=== PATIENT | female | born 1975 | race Hispanic/Latino ===

== ENCOUNTER 2019-06-29 16:50 | Inpatient (IN) | payer BC ==
[~2019-06-29] VITALS: Ht 160 cm; Wt 67.6 kg
[2019-06-29] MEDS ORDERED: SODIUM CHLORIDE 0.9% 1000ML 1,000 ML IV STA (17:12)
[2019-06-29 17:37] LABS: BASOPHILS # (AUTO) 0.1 (0.0-0.1); BASOPHILS % 0.3 % (0.0-1.0); EOSINOPHILS % 0.2 % (0.0-6.0); HEMATOCRIT 38.1 % (34.2-44.1); HEMOGLOBIN 12.3 g/dL (12.0-16.0); LYMPHOCYTES # (AUTO) 1.7 (1.0-3.2); LYMPHOCYTES % 8.8 % (18.0-39.1); MEAN CORPUSCULAR HEMOGLOBIN 29.6 pg (28-32); MEAN CORPUSCULAR HGB CONC 32.3 g/dL (31-35); MEAN CORPUSCULAR VOLUME 91.8 fL (81-99); MONOCYTES # (AUTO) 0.9 (0.2-0.8); MONOCYTES % 4.5 % (4.4-11.3); NEUTROPHILS # (AUTO) 16.2 (2.1-6.9); NEUTROPHILS % 85.8 % (38.7-80.0); PLATELET COUNT 357 x10e3/uL (140-360); RED BLOOD COUNT 4.15 x10e6/uL (3.6-5.1); RED CELL DISTRIBUTION WIDTH 12.3 % (11.7-14.4)
[2019-06-29 17:59] LABS: ALANINE AMINOTRANSFERASE 33 IU/L (0-55); ALBUMIN 4.4 g/dL (3.5-5.0); ALBUMIN/GLOBULIN RATIO 1.2 (0.8-2.0); ALKALINE PHOSPHATASE 49 IU/L (40-150); ANION GAP 13.7 mmol/L (8-16); BLOOD UREA NITROGEN 10 mg/dL (7-26); BUN/CREATININE RATIO 13 (6-25); CALCIUM 10.4 mg/dL (8.4-10.2); CARBON DIOXIDE 26 mmol/L (22-29); CHLORIDE 101 mmol/L (98-107); EST GLOMERULAR FILTRATION RATE > 60 ML/MIN (60-); GLUCOSE 141 mg/dL (74-118); POTASSIUM 3.7 mmol/L (3.5-5.1); SODIUM 137 mmol/L (136-145)
[2019-06-29] MEDS ORDERED: KETOROLAC TROMETHAMINE 30 MG/ML VIAL IV STA (18:11)
[2019-06-29] MEDS ORDERED: CEFTRIAXONE SOD 1 GM VIAL IV ONE (18:15)
[2019-06-29] MEDS ORDERED: SODIUM CHLORIDE 0.9% 1000ML 1,000 ML IV SCH ×2 (18:15→20:16)
[2019-06-29] MEDS ORDERED: PHENAZOPYRIDINE HCL 100 MG TAB PO ONE (18:15)
[2019-06-29] MEDS ORDERED: CEFTRIAXONE SOD 1 GM/NS 50 ML 50 ML IV ONE (18:15)
[2019-06-29 18:22] LABS: INR 0.96; PARTIAL THROMBOPLASTIN TIME 27.4 seconds (23.8-35.5); PROTHROMBIN TIME 13.3 seconds (11.9-14.5)
[2019-06-29 18:44] LABS: BILIRUBIN,URINE LARGE (NEGATIVE); CLARITY,URINE CLOUDY (CLEAR); COLOR,URINE RED (YELLOW); KETONES,URINE 1+ (NEGATIVE); LEUKOCYTE ESTERASE ,URINE LARGE (NEGATIVE); NITRITE,URINE NEGATIVE (NEGATIVE); PROTEIN,URINE DIPSTICK >=300 (NEGATIVE); URINE UROBILINOGEN 1 mg/dL (0.2 - 1)
[2019-06-29 18:45] LABS: BACTERIA,URINE MODERATE /HPF; RBC,URINE >50 /HPF (0-5)
--- NOTE | 2019-06-29 20:07 | Diagnostic Imaging Report ---
EXAM: CT Abdomen and Pelvis WITH contrast INDICATION: Hematuria. Pyelonephritis. COMPARISON: None. TECHNIQUE: Abdomen and pelvis were scanned utilizing a multidetector helical scanner from the lung base to the pubic symphysis after administration of IV contrast. Coronal and sagittal reformations were obtained. Routine protocol was performed. Scan was performed when during portal venous phase. IV CONTRAST: 100 mL of Isovue 370 ORAL CONTRAST: None COMPLICATIONS: None RADIATION DOSE: Total DLP: 318 mGy*cm Estimated effective dose: (DLP x 0.015 x size factor) mSv CTDIvol has been reviewed. It is below the limits set by the Radiation Protocol Committee (RPC). Dose modulation, iterative reconstruction, and/or weight based adjustment of the mA/kV was utilized to reduce the radiation dose to as low as reasonably achievable. FINDINGS: LINES and TUBES: None. LOWER THORAX: Unremarkable HEPATOBILIARY: No focal hepatic lesions. No biliary ductal dilation. GALLBLADDER: No radio-opaque stones or sludge. No wall thickening. SPLEEN: No splenomegaly. PANCREAS: No focal masses or ductal dilatation. ADRENALS: No adrenal nodules KIDNEYS/URETERS: Kidneys enhance symmetrically. No hydronephrosis. No cystic or solid mass lesions. No stones. GI TRACT: No abnormal distention, wall thickening, or evidence of bowel obstruction. Appendix is normal. Scattered diverticulosis without evidence of diverticulitis. PELVIC ORGANS/BLADDER: Slight urinary bladder wall thickening could be due to cystitis in the appropriate clinical context. LYMPH NODES: No lymphadenopathy. VESSELS: Unremarkable. PERITONEUM / RETROPERITONEUM: No free air or fluid. BONES: Unremarkable. SOFT TISSUES: Unremarkable. IMPRESSION: 1. Slight urinary bladder wall thickening could be due to cystitis in the appropriate clinical context. No urinary tract calcification. No hydronephrosis, hydroureter or perinephric fat stranding. 2. Scattered diverticulosis without evidence of diverticulitis. Signed by: Dr. Miguel Juarez M.D. on 06/29/2019 8:04 PM
[2019-06-29] MEDS ORDERED: ACETAMINOPHEN 325 MG TAB PO PRN (20:30)
[2019-06-29] MEDS ORDERED: MORPHINE SULFATE 2 MG/ML SYR 1ML IV PRN (20:30)
[2019-06-29] MEDS ORDERED: DEXTROSE 50% SYRINGE 50 ML IV PRN (20:30)
--- OUTSIDE RECORDS SUMMARY | 2019-06-29 20:37 | XMS REPORT ---
Author Author [facility] Address Unknown Phone Unavailable Care Team Providers Care Bobbin Coil Winder Name Role Phone MANUEL CASTORENA Unavailable Unavailable Problems This patient has no known problems. Allergies, Adverse Reactions, Alerts This patient has no known allergies or adverse reactions. Medications This patient has no known medications. Results Test Description Test Time Test Comments Text Results Atomic Results Result Comments CT ABDOMEN/PELVIS W 2019-06-29 20:00:[address] [address] Patient Name: MICHELE KHANNA MR #: [id number] : 1975 Age/Sex: 43/F Req #: [id number] Adm Physician: Ordered by: ALEXANDREA HUSTON DIRECT CHILL CASTER Report #: [id number] Location: ER Room/Bed: Procedure: [id number] CT/CT ABDOMEN/PELVIS W Exam Date: Exam Time: REPORT STATUS: Signed EXAM: CT Abdomen and Pelvis WITH contrast INDICATION: Hematuria. Pyelonephritis. COMPARISON: None. TECHNIQUE: Abdomen and pelvis were scanned utilizing a multidetector helical scanner from the lung base to the pubic symphysis after administration of IV contrast. Coronal and sagittal reformations were obtained. Routine protocol was performed. Scan was performed when during portal venous phase. IV CONTRAST: 100 mL of Isovue 370 ORAL CONTRAST: None COMPLICATIONS: None RADIATION DOSE: Total DLP: 318 mGy*cm Estimated effective dose: (DLP x 0.015 x size factor) mSv CTDIvol has been reviewed. It is below the limits set by the Radiation Protocol Committee (RPC). Dose modulation, iterative reconstruction, and/or weight based adjustment of the mA/kV was utilized to reduce the radiation dose to as low as reasonably achievable. FINDINGS: LINES and TUBES: None. LOWER THORAX: Unremarkable HEPATOBILIARY: No focal hepatic lesions. No biliary ductal dilation. GALLBLADDER: No radio-opaque stones or sludge. No wall thickening. SPLEEN: No splenomegaly. PANCREAS: No focal masses or ductal dilatation. ADRENALS: No adrenal nodules KIDNEYS/URETERS: Kidneys enhance symmetrically. No hydronephrosis. No cystic or solid mass lesions. No stones. GI TRACT: No abnormal distention, wall thickening, or evidence of bowel obstruction. Appendix is normal. Scattered diverticulosis without evidence of diverticulitis. PELVIC ORGANS/BLADDER: Slight urinary bladder wall thickening could be due to cystitis in the appropriate clinical context. LYMPH NODES: No lymphadenopathy. VESSELS: Unremarkable. PERITONEUM / RETROPERITONEUM: No free air or fluid. BONES: Unremarkable. SOFT TISSUES: Unremarkable. IMPRESSION: 1. Slight urinary bladder wall thickening could be due to cystitis in the appropriate clinical context. No urinary tract calcification. No hydronephrosis, hydroureter or perinephric fat stranding. 2. Scattered diverticulosis without evidence of diverticulitis. Signed by: Dr. Miguel Juarez M.D. on 06/29/2019 8:04 PM Dictated By: MIGUEL JUAREZ MD, MD 03 Transcribed By: TOMY on 06/29/192003 COPY TO: ALEXANDREA HUSTON DIRECT CHILL CASTER SCR MAMM BILATERAL ARCELIA CAD DIGITAL 2018-12-15 10:43:08 - SCR MAMM BILATERAL ARCELIA CAD DIGITALBILATERAL DIGITAL SCREENING MAMMOGRAM 3D/2D WITH CAD: 12/15/2018CLINICAL: Asymptomatic. Digital breast tomosynthesis was performed in addition to routine CC and MLO views. Current mammographic images were evaluated by either a [employer] M-Vu or a [employer] ImageChecker CAD (computer aided detection system). Comparison is made to exams dated 12/13/2017 mammogram, 10/25 mammogram - [facility], and 12/04/2015 mammogram - [facility]. There are scattered fibroglandular tissues in both breasts. No suspicious mass, architectural distortion, malignant type calcification, or lymph node abnormality detected. Breast architecture is stable compared to prior exams.IMPRESSION: NEGATIVEThere is no mammographic evidence of malignancy. Resume annual screening mammography in one year. Michael bailey/penrad:12/15/2018 10:43:08 Network Architect: Nimo CAMPBELL, [facility] sent: BIRADS 1-2 Normal Mammogram BI-RADS: 1 Negative
[2019-06-29] MEDS: INSULIN REGULAR, HUMAN 100 UNIT/1 ML 3ML VIAL SQ SCH (21:00)
[2019-06-29] MEDS ORDERED: CEFEPIME 2 GM/NS 0.9% 100 ML 100 ML IV SCH (21:00)
--- NOTE | 2019-06-29 21:19 | NUR ---
Received report from ER nurse.
[2019-06-29 22:00] VITALS: BP 124/72
--- NOTE | 2019-06-29 22:00 | NUR ---
Patient arrived to the floor via w/c.
[2019-06-29 22:39] VITALS: BP 127/81
[2019-06-29] MEDS: MORPHINE SULFATE INJ 4 MG/ML INJ 1ML IV PRN (23:15)
[2019-06-29] MEDS: ONDANSETRON HCL INJ 2MG/ML 2ML 2 MG/ML VIAL IV PRN (23:26)
[2019-06-30] VITALS (8 sets, daily range): BP systolic 118–154; BP diastolic 72–95
--- NOTE | 2019-06-30 | NUR ---
Patient requested pain and nausea meds. Given as ordered by MD. Admit completed.
[2019-06-30] MEDS ORDERED: METFORMIN HCL500 MG PO ×2 (03:37→03:39)
[2019-06-30] MEDS ORDERED: LOTENSIN HCT 21 EAC2 PO (03:42)
[2019-06-30] MEDS ORDERED: ATORVASTATIN CA20 MG PO (03:51)
[2019-06-30 05:55] LABS: BASOPHILS % 0.3 % (0.0-1.0); EOSINOPHILS # (AUTO) 0.1 (0.0-0.4); EOSINOPHILS % 1.1 % (0.0-6.0); HEMATOCRIT 31.8 % (34.2-44.1); HEMOGLOBIN 10.1 g/dL (12.0-16.0); LYMPHOCYTES % 19.7 % (18.0-39.1); MEAN CORPUSCULAR HEMOGLOBIN 29.5 pg (28-32); MEAN CORPUSCULAR HGB CONC 31.8 g/dL (31-35); MONOCYTES # (AUTO) 0.7 (0.2-0.8); MONOCYTES % 6.8 % (4.4-11.3); NEUTROPHILS # (AUTO) 7.3 (2.1-6.9); NEUTROPHILS % 71.7 % (38.7-80.0); PLATELET COUNT 283 x10e3/uL (140-360); RED BLOOD COUNT 3.42 x10e6/uL (3.6-5.1); RED CELL DISTRIBUTION WIDTH 12.6 % (11.7-14.4)
[2019-06-30 06:28] LABS: ALANINE AMINOTRANSFERASE 23 IU/L (0-55); ALBUMIN 3.2 g/dL (3.5-5.0); ALBUMIN/GLOBULIN RATIO 1.1 (0.8-2.0); ALKALINE PHOSPHATASE 36 IU/L (40-150); ANION GAP 7.5 mmol/L (8-16); CALCIUM 8.4 mg/dL (8.4-10.2); CARBON DIOXIDE 28 mmol/L (22-29); CHLORIDE 106 mmol/L (98-107); CREATININE, SERUM 0.74 mg/dL (0.57-1.11); EST GLOMERULAR FILTRATION RATE > 60 ML/MIN (60-); GLUCOSE 154 mg/dL (74-118); POTASSIUM 3.5 mmol/L (3.5-5.1); SODIUM 138 mmol/L (136-145)
[2019-06-30 06:41] LABS: BLOOD UREA NITROGEN 12 mg/dL (7-26); BUN/CREATININE RATIO 16 (6-25)
--- NOTE | 2019-06-30 06:41 | NUR ---
Patient resting quitly at this time.
[2019-06-30] MEDS ORDERED: SODIUM CHLORIDE 0.9% 50ML 50 ML ONE (07:01)
[2019-06-30] MEDS ORDERED: IOPAMIDOL 370 MG/ML 200 ML INFUS..BTL INJ ONE (07:01)
[2019-06-30] MEDS: INSULIN REGULAR, HUMAN 100 UNIT/1 ML 3ML VIAL SQ SCH ×4 (07:30→21:00)
--- NOTE | 2019-06-30 07:45 | NUR ---
PATIENT IN BED RESTING WITH NO S/S OF DISTRESS. IV FLUID INFUSING ORDERED. BED IN LOWER POSITION, CALL LIGHT AT REACH.
[2019-06-30] MEDS: CEFEPIME 2 GM/NS 0.9% 100 ML 100 ML IV SCH ×2 (10:00→21:36)
[2019-06-30] MEDS ORDERED: AMLODIPINE BESYLATE 5 MG TAB PO PRN (11:15)
--- NOTE | 2019-06-30 11:22 | NUR ---
MD IN TO SEE PATIENT, NEW ORDER RECEIVED.
[2019-06-30] MEDS: KCL 20MEQ/.9 SOD CHL 1,000 ML IV SCH (11:57)
--- NOTE | 2019-06-30 12:06 | History and Physical ---
PRIMARY CARE PHYSICIAN: Dr. Bushra Aguilera CHIEF COMPLAINT: Gross hematuria associated with flank and abdominopelvic pain with urinary tract infection. HISTORY: The patient is a 43-year-old female with baseline diabetes on oral hypoglycemic medication and also hypertension. She is also on metformin, benazepril, HCTZ, came to the hospital after she did not feel better from treatment at an urgent care. The patient presented with gross hematuria associated with pelvic and flank pain. She also has leukocytosis and lactic acidosis. Her heart rate was 125, blood pressure was very elevated. She has symptoms of sepsis without shock. The patient is admitted to the hospital for IV antibiotic treatment. She did receive a dose of cefepime in the emergency room. PAST MEDICAL HISTORY: 1. Diabetes type 2, on oral hypoglycemic medication. 2. Hypertension. PAST SURGICAL HISTORY: Noncontributory. SOCIAL HISTORY: The patient does not smoke or use alcohol. No regular drugs. ALLERGIES: NO KNOWN ALLERGIES. HOME MEDICATIONS: The patient is on Lipitor, benazepril, HCTZ, metformin. PHYSICAL EXAMINATION: VITAL SIGNS: Temperature is 98, blood pressure 194/94, pulse rate 125, respirations 20. GENERAL: The patient is not in acute distress. She is awake. HEENT: Normocephalic and atraumatic. Sclerae anicteric. NECK: Supple grossly. PULMONARY: Clear. CARDIOVASCULAR: Tachycardia. ABDOMEN: Tenderness in suprapubic area along with right flank tenderness. EXTREMITIES: No cyanosis or edema NEUROLOGIC: No focal deficit. LABORATORY DATA: Sodium is 137, potassium 3.7, chloride is 101, bicarb 26, BUN 10, creatinine 0.8, glucose 141, lactic acid level is 2.1, calcium is 10.4, globulin 3.7. WBC 18.8, hemoglobin 12.3, hematocrit 38, platelet 357. Coagulation is normal. She has a left shift of 85.8 neutrophils. Urinalysis, red cloudy urine, 1+ ketone, large leukocyte esterase, greater than 50 rbc, wbc's 20, moderate bacteria. test, urine negative, epithelial cells none. CT scan of abdomen and pelvis shows cystitis but no abscess or hydronephrosis. IMPRESSION: 1. Sepsis without shock. 2. Urinary tract infection causing the above. 3. Lactic acidosis, combination of urinary tract infection, sepsis, and was on metformin. 4. Baseline diabetes type 2, on metformin and hypertension. 5. Gross hematuria secondary to the above. PLAN: Continue with IV fluids. Cefepime. Check blood culture, urine culture. Home medication resumed except for metformin and HCTZ. Check blood pressure medication if needed. Continue with rehydration. Continue with cefepime q.12. We will check the patient's blood culture, urine culture and sensitivity prior to discharge home. MD JOSEPH Garcia/JULIETTE /[id number]
--- NOTE | 2019-06-30 15:12 | NUR ---
LIVES INDEPENDENTLY AT HOME WITH FAMILY EMERGENCY CONTACT: SISTER JANEE [phone] PCP: DR. KOURTNEY CASSIDY EMPLOYMENT STATUS: EMPLOYED HOME HEALTH: NONE DME: NONE DC PLAN: RETURN HOME AND TO WORK
--- NOTE | 2019-06-30 15:35 | NUR ---
PATIENT AMBULATED TO THE RESTROOM AND BACK TO BED. IV FLUID INFUSING ORDERED.
[2019-06-30] MEDS: ATORVASTATIN 20 MG TAB PO SCH (21:36)
[2019-06-30] MEDS ORDERED: EXCEDRIN MIGRA1 EACH PO (21:51)
[2019-06-30] MEDS ORDERED: CAFFEINE PO PRN (22:00)
[2019-06-30] MEDS ORDERED: ASPIRIN PO PRN (22:00)
[2019-06-30] MEDS ORDERED: ACETAMINOPHEN PO PRN (22:00)
[2019-06-30] MEDS ORDERED: [UNRECOGNIZED DRUG - OTHER] PO PRN (22:00)
[2019-06-30] MEDS: ACETAMIN/BUTALBITAL/CAFFEINE TAB PO PRN (22:08)
[2019-07-01] VITALS (8 sets, daily range): BP systolic 126–142; BP diastolic 67–88
[2019-07-01] MEDS: KCL 20MEQ/.9 SOD CHL 1,000 ML IV SCH ×3 (01:18→17:15)
[2019-07-01 06:15] LABS: BASOPHILS % 0.4 % (0.0-1.0); EOSINOPHILS # (AUTO) 0.2 (0.0-0.4); EOSINOPHILS % 2.3 % (0.0-6.0); HEMATOCRIT 30.8 % (34.2-44.1); HEMOGLOBIN 9.7 g/dL (12.0-16.0); LYMPHOCYTES # (AUTO) 1.9 (1.0-3.2); LYMPHOCYTES % 27.9 % (18.0-39.1); MEAN CORPUSCULAR HEMOGLOBIN 29.3 pg (28-32); MEAN CORPUSCULAR HGB CONC 31.5 g/dL (31-35); MEAN CORPUSCULAR VOLUME 93.1 fL (81-99); MONOCYTES # (AUTO) 0.6 (0.2-0.8); MONOCYTES % 7.9 % (4.4-11.3); NEUTROPHILS # (AUTO) 4.2 (2.1-6.9); NEUTROPHILS % 61.1 % (38.7-80.0); PLATELET COUNT 276 x10e3/uL (140-360); RED BLOOD COUNT 3.31 x10e6/uL (3.6-5.1); RED CELL DISTRIBUTION WIDTH 12.6 % (11.7-14.4)
[2019-07-01 06:39] LABS: ANION GAP 10.3 mmol/L (8-16); BLOOD UREA NITROGEN 8 mg/dL (7-26); BUN/CREATININE RATIO 12 (6-25); CARBON DIOXIDE 27 mmol/L (22-29); CHLORIDE 107 mmol/L (98-107); CREATININE, SERUM 0.67 mg/dL (0.57-1.11); EST GLOMERULAR FILTRATION RATE > 60 ML/MIN (60-); GLUCOSE 152 mg/dL (74-118); POTASSIUM 4.3 mmol/L (3.5-5.1); SODIUM 140 mmol/L (136-145)
--- NOTE | 2019-07-01 07:00 | NUR ---
Received bedside shift report from off going nurse. Patient in stable condition, no s/s of distress noted. No pain voiced. Telemetry in place and working. Bed in lowest position and locked. Call light within reach. All personal items within reach.
[2019-07-01] MEDS: INSULIN REGULAR, HUMAN 100 UNIT/1 ML 3ML VIAL SQ SCH ×4 (07:30→21:00)
[2019-07-01] MEDS: CEFEPIME 2 GM/NS 0.9% 100 ML 100 ML IV SCH ×2 (09:08→21:18)
[2019-07-01] MEDS: MORPHINE SULFATE INJ 4 MG/ML INJ 1ML IV PRN ×2 (18:22→19:07)
[2019-07-01] MEDS: ONDANSETRON HCL INJ 2MG/ML 2ML 2 MG/ML VIAL IV PRN (18:22)
--- NOTE | 2019-07-01 19:02 | NUR ---
Bedside shift report given to oncoming nurse. Patient in stable condition, no s/s of distress noted. Telemetry in place and working, IV fluids running.Bed in lowest position and locked. Call light within reach. All personal item within reach.
[2019-07-01] MEDS: ATORVASTATIN 20 MG TAB PO SCH (21:18)
[2019-07-01] MEDS: ACETAMIN/BUTALBITAL/CAFFEINE TAB PO PRN (21:19)
[2019-07-02 00:29] VITALS: BP 115/58
[2019-07-02] MEDS: KCL 20MEQ/.9 SOD CHL 1,000 ML IV SCH (01:30)
[2019-07-02 04:35] VITALS: BP 124/87
[2019-07-02] MEDS: INSULIN REGULAR, HUMAN 100 UNIT/1 ML 3ML VIAL SQ SCH (07:30)
[2019-07-02 08:15] VITALS: BP 130/77
[2019-07-02] MEDS: CEFEPIME 2 GM/NS 0.9% 100 ML 100 ML IV SCH (08:15)
[2019-07-02 08:53] VITALS: BP 130/77
--- NOTE | 2019-07-02 10:40 | NUR ---
Discharge instructions and prescriptions were given to the patient. She verbalized understanding. IV to right FA was removed with tip intact.
--- NOTE | 2019-07-02 10:42 | Discharge Summary ---
PRIMARY CARE PHYSICIAN: Bushra Aguilera MD. FINAL DIAGNOSES: 1. Sepsis without shock secondary to urinary tract infection. 2. Gross hematuria with dysuria associated with urinary tract infection Escherichia coli. SUMMARY: A 43-year-old female, came in with fever, high WBC and also with gross hematuria. The patient was with lactic acidosis as well. Her WBC on admission was 18.8 thousand. The patient had E coli in her urine. She was having increase in dysuria, gross hematuria, and also had some associated with right flank pain as well. CT of the abdomen and pelvis without contrast did not show significant abscess or pyelonephritis, but the patient presented with symptoms of sepsis. The patient was given cefepime 1 g q.12. She is doing much better. E coli sensitive to multiple antibiotics. The patient is otherwise stable. She will go home today. She will follow up with Dr. Aguilera in approximately 1 week. She is doing much better. The patient will be discharged home with Cipro 500 mg twice a day for 7 days. Zofran ODT p.r.n. and Pyridium p.r.n. The patient will resume home medication. MD JOSEPH Garcia/JULIETTE /[id number]
== END 2019-07-02 11:48 | disposition home or self-care (01) | DRG 872 ==
LOC: ER 16:50 → ERHOLD 20:35 → MED/SURG2 22:21
PROVIDERS: ADMIT Internal Medicine; ATTEND Internal Medicine
DX: A41.9 Sepsis, unspecified organism (principal); N30.01 Acute cystitis with hematuria; E87.2 Acidosis; I10 Essential (primary) hypertension; E11.9 Type 2 diabetes mellitus without complications; E78.5 Hyperlipidemia, unspecified; B96.20 Unspecified Escherichia coli [E. coli] as the cause of diseases classified elsewhere; Z79.82 Long term (current) use of aspirin; Z79.84 Long term (current) use of oral hypoglycemic drugs
CPT/HCPCS: 36415; 74177; 80048; 80053; 81001; 81025; 82948; 83605; 85025; 85610; 85730; 87040; 87086; 87186; 99284; J0696; J1817; J1885; J2270; J2405; J7030; Q9967